=== PATIENT | female | born 1970 ===

== ENCOUNTER 2018-03-20 03:14 | Inpatient (IN) ==
[2018-03-21] MEDS ORDERED: Ketorolac Inj 30 MG/ML (IVP) Vial IV.PUSH PRN
[2018-03-21] MEDS ORDERED: Morphine Inj 4 MG/ML Vial IV.PUSH PRN
[2018-03-21] MEDS ORDERED: KCL 20 mEq/D5W/NaCl 0.45% Inj 1,000 ML IV.CONT SCH
[2018-03-21] MEDS ORDERED: Bisacodyl 10 MG Supp RECTAL PRN
[2018-03-21] MEDS ORDERED: Acetaminophen 325 MG Tablet PO PRN
[2018-03-21] MEDS ORDERED: Chlorhexidine Gluconate 2% 1 Pack (2 Cloths) TOPICAL PRN (04:00)
[2018-03-21] MEDS ORDERED: Chlorhexidine Gluconate 2% 1 Pack (2 Cloths) TOPICAL SCH (04:00)
[2018-03-21 07:25] LABS: Baso # (Auto) 0.1 th/mm3 (0.0-0.2); Baso % (Auto) 1.2 % (0.0-2.0); Eos # (Auto) 0.2 th/mm3 (0.0-0.4); Eos % (Auto) 3.5 % (0.0-4.0); Hematocrit 41.6 % (35.0-46.0); Hemoglobin 13.8 gm/dL (11.6-15.3); Lymph # (Auto) 2.1 th/mm3 (1.0-4.8); Lymph % (Auto) 47.2 % (9.0-44.0); Mean Corpuscular HGB Conc 33.3 % (32.0-36.0); Mean Corpuscular Hemoglobin 29.9 pg (27.0-34.0); Mean Corpuscular Volume 89.8 fL (80.0-100.0); Mean Platelet Volume 9.3 fL (7.0-11.0); Mono # (Auto) 0.4 th/mm3 (0.0-0.9); Mono % (Auto) 8.1 % (0.0-8.0); Neut # (Auto) 1.8 th/mm3 (1.8-7.7); Platelet Count 241 th/mm3 (150-450); Red Blood Count 4.63 mil/mm3 (4.00-5.30); Red Cell Distribution Width 13.7 % (11.6-17.2); White Blood Count 4.4 th/mm3 (4.0-11.0)
[2018-03-21 07:47] LABS: Calcium 8.7 mg/dL (8.5-10.1); Carbon Dioxide 27.4 meq/L (21.0-32.0)
[2018-03-21] MEDS ORDERED: Senna/Docusate Sodium 8.6/50 MG Tablet PO SCH (09:00)
[2018-03-21] MEDS ORDERED: Heparin - SQ 10,000 UNITS/ML Vial SQ SCH (09:00)
--- NOTE | 2018-03-21 11:16 | P.PN ---
Subjective Interval history: Nursing denies any deterioration since last night. Patient's pain is improved since admission. Urine culture from [facility] is negative final growth. Physical Exam Vital signs: Vital Signs 03/21/18 00:00 03/21/18 08:00 Temperature 97.9 F 98.1 F Pulse Rate 67 73 Respiratory Rate 18 18 Blood Pressure 113/62 128/78 Pulse Oximetry 95 96 Intake & Output 03/20/18 03/21/18 03/21/18 18:59 06:59 18:59 Intake Total 0 / 0 Output Total 550 / 550 Balance -550 / -550 Weight 71.3 kg Intake: Oral 0 / 0 Output: Urine 550 / 550 Narrative: Mild right flank tenderness to palpation, abdomen otherwise is soft and nontender nondistended Lying in bed, awake and alert, no acute distress Results - Labs CBC & Chem 7: 03/21/18 04:43 03/21/18 04:43 Laboratory Results - last 24 hr 03/20/18 03/21/18 03/21/18 04:00 04:43 04:43 WBC 4.4 RBC 4.63 Hgb 13.8 Hct 41.6 MCV 89.8 MCH 29.9 MCHC 33.3 RDW 13.7 Plt Count 241 MPV 9.3 Neut % (Auto) 40.0 Lymph % (Auto) 47.2 H [place] % (Auto) 8.1 H Eos % (Auto) 3.5 Baso % (Auto) 1.2 Neut # (Auto) 1.8 Lymph # (Auto) 2.1 [place] # (Auto) 0.4 Eos # (Auto) 0.2 Baso # (Auto) 0.1 WBC Differential . Differential Comment Auto diff final Sodium 143 Potassium 4.0 Chloride 107 Carbon Dioxide 27.4 Anion Gap 9 BUN 9 Creatinine 0.77 Estimated GFR 80 L Random Glucose 78 Calcium 8.7 Nasal Screen MRSA (PCR) MRSA NOT DETECTED Assessment and Plan - Plan 47-year-old white female admitted for hydronephrosis secondary to right sided nephrolithiasis. Anticipates stent placement today. Tolerates procedure well and tolerates p.o. intake well and pain is controlled afterwards may be discharged today. Will defer pain scripts to urology. Adeundum: clear for dc. Pt's home regimen entails an acute pain exception where her pain is not controlled with tylenol and will require controlled substance level grade to help manage her pain and minimize further hospitalizations as a result. Patient is having significant pain associated by procedure which will last more than 3 days. I believe that it is medically necessary to treat patients pain because it is affecting patients ability to function at her baseline.
[2018-03-21] MEDS ORDERED: Ketorolac Inj 30 MG/ML (IVP) Vial IV.PUSH ONE (12:00)
[2018-03-21] MEDS ORDERED: Lidocaine PF 1% Inj 5 ML Syringe INFILTRATN ONE (12:00)
[2018-03-21] MEDS ORDERED: Phenylephrine/NS 1000 MCG/10ML Syringe IV.PUSH ONE (12:00)
[2018-03-21] MEDS ORDERED: Famotidine PF Inj 20 MG/2 ML Vial ONE (13:12)
[2018-03-21] MEDS ORDERED: Scopalamine 1.5 MG Patch T-DERMAL ONE (13:13)
[2018-03-21] MEDS ORDERED: ceFAZolin 2 GM Premix Inj 2 GM/50 ML PIGGYBACK IV.SIG ONE (13:28)
[2018-03-21] MEDS ORDERED: fentaNYL Citrate Inj 100 MCG/2 ML Ampul ONE (14:13)
== END 2018-03-21 17:25 | disposition home or self-care (01) ==
LOC: UNDODISIN → N03 03:14 → N07 13:16
PROVIDERS: ADMIT Hospitalist; ATTEND Hospitalist